=== PATIENT | male | born 1985 | race Two or more races ===

== ENCOUNTER 2025-03-16 22:43 | Emergency (ER) | payer MEDICAID, SELFPAY ==
[2025-03-16 23:15] VITALS: BP 146/88; PULSE 68; RESP 16; TEMP 37; O2SAT 99; BMI 22.8
[2025-03-16] MEDS: ACYCLOVIR 800 MG TABLET PO (23:59)
[2025-03-17] MEDS: predniSONE 20 MG TABLET 80 MG PO
[2025-03-17] MEDS: ACYCLOVIR 800 MG TABLET PO (00:04)
--- NOTE | 2025-03-17 05:51 | EDNOTE_ITS ---
Neuro Symptoms Deficit-RME/HPI General Chief Complaint: Neuro Symptoms/Deficit Stated Complaint: NUMBNESS TO RIGHT SIDE FACE Time Seen by Provider: 03/16/25 23:25 Arrival date/time: 03/16/25 22:43 39M with no significant PMH presents to ED with 4 days of R-sided MCKEON/tingling and 1 day of R-sided facial droop. Patient denies AMS, seizures, vision changes, N/V, drug/alcohol use, fall/trauma, dizziness, and weakness. Limitations: no limitations Related Data Previous Rx's ?Medication ?Instructions ?Recorded prednisone 20 mg tablet 80 mg (4 x 20 mg) PO QDAY 7 days 03/16/25 #28 tabs valacyclovir 1 gram tablet 1,000 mg PO TID 7 days #21 tabs 03/16/25 Allergies Allergy/AdvReac Type Severity Reaction Status Date / Time No Known Allergies Allergy Verified 03/16/25 22:46 Review of Systems Review of Systems Systems Reviewed: All systems reviewed, normal except as documented Constitutional Constitutional: Reports system reviewed and no additional complaints, except as documented, Denies fever(s) and Denies headache(s) ENT Ears, Nose, Mouth, and Throat: Reports as per HPI, Denies disequilibrium, Denies headache(s) and Reports other (R facial droop) Cardiovascular Cardiovascular: Reports system reviewed and no additional complaints, except as documented, Denies chest pain and Denies dyspnea Respiratory Respiratory: Reports system reviewed and no additional complaints, except as documented, Denies cough and Denies dyspnea Gastrointestinal Gastrointestinal: Reports system reviewed and no additional complaints, except as documented, Denies abdominal pain, Denies nausea and Denies vomiting Neurologic Neurologic: Reports system reviewed and no additional complaints, except as documented, Denies confusion, Denies disequilibrium and Denies headache(s) Psychiatric Psychiatric: Denies confusion Past Medical History Social History SMOKING STATUS: Never smoker ED Exam General Limitations: Present no limitations General appearance: Present alert and in no apparent distress Head Head exam: Present atraumatic Eye Eye exam: Present normal appearance, PERRL and EOMI ENT ENT exam: Present normal oropharynx, mucous membranes moist and other (R facial droop) Neck Neck exam: Present normal inspection, full ROM and trachea midline Chest Chest inspection: Present normal inspection and symmetric chest wall rise Respiratory Respiratory exam: Present normal lung sounds bilaterally Cardiovascular Cardiovascular exam: Present regular rate, normal rhythm and normal heart sounds Abdominal Exam Abdominal exam: Present soft and normal bowel sounds Extremities Exam Extremities exam: Present normal inspection and full ROM Back Exam Back exam: Present normal inspection and full ROM Neurological Exam Neurological exam: Present alert, oriented X3 and CN II-XII intact Psychiatric Psychiatric exam: Present normal affect and normal mood Skin Skin exam: Present warm, dry, intact and normal color Course Quality Measures none Orders Category Date Time Status Acyclovir [Zovirax] Med 03/16/25 23:26 Discontinued 800 mg PO X1 ONE predniSONE Med 03/16/25 23:26 Discontinued 80 mg PO X1 ONE Vital Signs Vital signs: Vital Signs Temperature 98.6 F 03/16/25 23:15 Pulse Rate 68 03/16/25 23:15 Respiratory Rate 16 03/16/25 23:15 Blood Pressure 146/88 H 03/16/25 23:15 Pulse Oximetry (%) 99 03/16/25 23:15 Oxygen Delivery Method Room Air 03/16/25 23:15 O2 at 99% on RA and WNLs Neuro Symptoms / Deficit MDM Narrative MDM Narrative:: 39M with no significant PMH presents to ED with 4 days of R-sided MCKEON/tingling and 1 day of R-sided facial droop. Patient denies AMS, seizures, vision changes, N/V, drug/alcohol use, fall/trauma, dizziness, and weakness. Physical exam reveals R-sided facial droop including inability to fully close R eyelid and move R eyebrow. Normal pupil response and EOM. Gait normal. Strength equal bilaterally. Patient is afebrile, calm, and alert. Likely Keita's Palsy. Money Manager and meds given. Patient data External records reviewed:: None Clinical information provided by:: patient Social determinants that could affect healthcare access:: none Patient has the following chronic illnesses:: none How is presenting disease/condition affected by chronic disease/condition?: no chronic disease Evaluation data The following diagnostics were reviewed and interpreted by me:: other (specify) (none) Lab and/or radiology exams considered but not ordered:: not ordered Interpretation Summary: n/a Medications / Prescriptions Medications or Prescriptions considered but not ordered:: ordered Medication administrations:: Medication Administration History Discontinued Medications Acyclovir (Acyclovir 800 Mg Tablet) 800 mg PO X1 ONE Stop: 03/16/25 23:27 Last Admin: 03/17/25 00:04 Dose: 800 mg Documented By: Admin: 03/16/25 23:59 Dose: 800 mg Documented By: Prednisone (Prednisone 20 Mg Tablet) 80 mg PO X1 ONE Stop: 03/16/25 23:27 Last Admin: 03/17/25 00:00 Dose: 80 mg Documented By: above Consultations Consultation(s) initiated? (list below): No Diagnosis Neuro Differential Diagnosis: carpal tunnel syndrome, convulsions, delirium, subarachnoid hemorrhage, peripheral neuropathy, cerebrovascular accident, multiple sclerosis, transient cerebral ischemia and other (Keita's palsy) Most likely diagnosis given after review of the tests above:: Keita's palsy Admission Indicated Admission indicated?: not indicated Admission Request Was there a request for admission?: No Disposition Plan Disposition Plan: Discharge Discharge Attestation Discharge Attestation: The patient and all family members were given an opportunity to ask questions and understood the discharge instructions. Discharge instructions specifically effects, indications for sooner follow up or return to the emergency department, and the expected course of current diagnosis. Patient condition: Stable Discharge Plan Plan Patient Disposition: HOME (Self Care) Disposition Comment: Stable Prescriptions/Referrals Prescriptions/Med Rec: New prednisone 20 mg tablet 80 mg PO QDAY 7 Days Qty: 28 0RF valacyclovir 1 gram tablet 1,000 mg PO TID 7 Days Qty: 21 0RF Problem List Clinical Impression: Keita's palsy Patient/Caregiver Discharge Instructions Education Materials: ED Keita's Palsy Additional Instructions: Please follow-up with PCP within 24-48 hours and return immediately if symptoms worsen. Print Language: [place] Stand Alone Forms: Patient Portal Info Letter ANJEL/AKANKSHA Supervising Physician KRYSTAL Supervising Physician: Dr. Servin
== END 2025-03-17 00:27 | disposition home or self-care (01) ==
LOC: SERX 23:48
PROVIDERS: Emergency Provider Emergency Medicine; PCP Family Medicine
DX: G51.0 Bell's palsy (principal)
CPT/HCPCS: 99282; J7512; A9270